=== PATIENT | female | born 1970 | race Caucasian/White ===

== ENCOUNTER 2022-08-26 06:35 | Observation (INO) ==
--- NOTE | 2022-08-23 11:00 | Anesthesiology Consultation ---
Date of Service August 23, 2022 Assessment & Plan (1) Encounter for pre-operative examination: COVID screening: Per assessment on 08/23: No known COVID-19 positive contacts or current COVID-19 related symptoms. Travel screen negative. At surgeon discretion if preop Covid testing being done. Chart Review Chart Review: Acceptable Risk for Surgery and Patient NOT seen in Pre Admission Testing History Surgery Operation Date: 08/26/22 09:25 Proposed Procedures p Robotic Laparoscopic Assisted Partial Nephrectomy, Possible Hand Assist Radical Nephrectomy - - Mike Loera, Height/Weight Height: 5 ft 5 in Weight: 102.058 kg Allergies Allergy/AdvReac Type Severity Reaction Status Date / Time No Known Allergies Allergy Verified 08/23/22 09:32 Medications Home Medications Medication Instructions Recorded Confirmed Last Taken olmesartan 20 1 tab PO QAM 08/23/22 08/23/22 Unknown mg-hydrochlorothiazide 12.5 mg tablet omega 1-deu-ctz-fish oil 1,000 mg 1 cap PO DAILY 08/23/22 08/23/22 Unknown (120 mg-180 mg) capsule (Fish Oil) Past Medical History Medical History Diverticular disease Hyperlipidemia Per records, pt unaware Hypertension Renal mass Past Family History Family History Father Diabetes Brother Diabetes Other Family history of [place] (myocardial infarction) Past Surgical History Surgical History History of colonoscopy History of dilatation and curettage History of partial hysterectomy History of tonsillectomy History of tooth extraction Social History Smoking Status: Never smoker Do You Dip or Chew Tobacco: No Hx Alcohol Use: No Hx Substance Use: No substance use type: does not use Lab Results Anesthesia Preop Results Results Anesthesia Widget: WBC 8.40 K/ul (4.8-10.8) 08/13/22 Hgb 14.0 g/dl (12.0-16.0) 08/13/22 Hct 40.9 % (34.1-44.9) 08/13/22 Plt 294 K/uL (130-400) 08/13/22 Na 140 mmol/L (136-145) 08/13/22 K 3.4 mmol/L (3.5-5.1) L 08/13/22 Cl 104 mmol/L (98-107) 08/13/22 CO2 26 mmol/L (21-32) 08/13/22 BUN 18 mg/dl (6-23) 08/13/22 Creat 0.90 mg/dl (0.6-1.2) 08/13/22 Glucose Level 90 mg/dl (70-99(Fasting)) 08/13/22 Testing Electrocardiogram Date: 08/13/22 Sinus rhythm with occasional PVCs at 75 bpm. Nonspecific T wave abnormality. Other Testing Chest CT (08/18/22) There is no evidence of intrathoracic metastatic disease. There are least 3 pulmonary nodules which measure up to 5 mm. These are pathologic indeterminant and attention at follow-up is recommended. There is no airspace consolidation or pleural effusion. A complex right upper pole renal lesion is partially visualized. The liver is enlarged and steatotic.
[~2022-08-26 06:35] MED LIST: LR 15ML/HR IV SCH; ceFAZolin 2000MG 2,000 MG/15 ML SYR IV SCH
[2022-08-26] MEDS ORDERED: MIDAZOLAM HCL 1 MG/ML 2ML VIAL ONE (06:49)
[2022-08-26] MEDS ORDERED: fentaNYL citrate 100 MCG/2 ML VIAL ONE (06:49)
[2022-08-26] MEDS ORDERED: DEXAMETHASONE SOD INJ 4 MG/ML VIAL ONE (06:49)
[2022-08-26] MEDS ORDERED: ROCURONIUM BROMIDE 10 MG/ML 5 ML VIAL IV ONE ×3 (06:49→10:10)
[2022-08-26] MEDS ORDERED: ONDANSETRON INJ 2 MG/ML 2 ML VIAL ONE (06:49)
[2022-08-26] MEDS ORDERED: LIDOCAINE 2% MPF LOCAL 5 ML VIAL INFIL ONE (06:49)
[2022-08-26] MEDS ORDERED: PROPOFOL IV EMULSION 10 MG/ML 20 ML VIAL IV ONE (06:49)
--- NOTE | 2022-08-26 07:00 | History & Physical Bridge Note ---
Date of Service August 26, 2022 History & Physical Bridge Note I have examined the patient, reviewed the History & Physical and in the interval since the performance of the History & Physical I have noted the following changes of clinical significance: no changes noted
[2022-08-26] MEDS ORDERED: ATROPINE SULFATE 0.1 MG/ML 10ML SYR IV PRN (07:11)
[2022-08-26] MEDS ORDERED: HYDROmorphone INJ 2 MG/ML SYR/VIAL IV PRN (07:11)
[2022-08-26] MEDS ORDERED: ONDANSETRON INJ 2 MG/ML 2 ML VIAL IV PRN ×2 (07:11→11:34)
[2022-08-26] MEDS ORDERED: ePHEDrine sulfate 50 MG/ML AMP IV PRN (07:11)
[2022-08-26] MEDS ORDERED: BUPIVACAINE 0.5 % 5 MG/1 ML MPF 30ML VIAL ONE (07:32)
[2022-08-26] MEDS ORDERED: KETAMINE 50 MG/5 ML SYRINGE ONE (08:19)
[2022-08-26] MEDS ORDERED: HYDROmorphone INJ 2 MG/ML SYR/VIAL ONE (08:47)
[2022-08-26] MEDS ORDERED: PHENYLEPHRINE 100MCG/ML 5ML SYR ONE (08:49)
[2022-08-26] MEDS ORDERED: TISSEEL FIBRIN SEALANT 10ML TOP ONE (09:02)
[2022-08-26] MEDS ORDERED: SURGICEL ABSORB HEMOSTAT 2IN X 14IN TOP ONE (09:02)
[2022-08-26] MEDS ORDERED: FLOSEAL HEMOSTATIC MATRIX 10ML TOP ONE (09:02)
[2022-08-26] MEDS ORDERED: ePHEDrine sulfate 50 MG/ML SYR ONE (09:08)
[2022-08-26] MEDS ORDERED: SUGAMMADEX SODIUM 200 MG/2 ML VIAL IV ONE (10:13)
--- NOTE | 2022-08-26 10:33 | Operative Report ---
[facility] Post Operative Report Pre & Post Diagnosis Operation Date: 08/26/22 08:30 Pre-Op Diagnosis: Right Renal Mass Post-Op Diagnosis: Right Renal Mass I identified the patient and participated in the time-out.: Yes Procedure Operation Date: 08/26/22 08:30 Actual Procedures p Robotic Assisted Laparoscopic Right Radical Nephrectomy with extensive lysis of adhesions (Right) - Mike Loera DO Surgeon Mike Loera, II, DO Supervisor Plastic Sheets CATHY Avina Estimated Blood Loss 75 Findings Consistent with Post-Op Diagnosis Large perihilar tumor of the posterior upper pole with close proximity to the hilar vessels and appearance of possible invasion of the hilum on intraoperative ultrasound. Extensive adhesions of the right lateral abdominal wall with the appendix attached to the lateral wall. Mass appeared to have vessels coming off of the surrounding perinephric fat as well as attachments to the liver. No signs of invasion into the liver. The right adrenal gland was found to be severely adhered to the tissue surrounding the mass. Due to these attachments the adrenal gland did appear to be involved in the resection and appeared to be removed with the radical specimen Specimens Right radical nephrectomy Drains 18 Fr Bryan Anesthesia Type General Complications none Disposition Disposition: Recovery Room Indications Patient with right renal mass suspicious for malignancy. Imaging concerning for mass involving the hilum with close proximity to the main renal vessels. Risks and benefits discussed at length. Description of Procedure The patient was brought to the operative suite and placed under general endotracheal intubation anesthesia in the supine position. The patient was transferred to lateral position with the right flank exposed. The patient was placed into a flex'ed position and then placed into mild reverse Trendelenberg. At this point, the patient prepped and draped in the usual sterile fashion and a timeout was completed. Preoperative weight based antibiotics had been given. IDALIA's and SCD's were placed on the patient's lower extremities. A catheter was placed by nursing using sterile technique. With the time out completed the patient was flexed and the skin was marked. The robotic port site was anesthetized. A small incision was made into the skin and subcutaneous tissues. A Varess needle was selected and placed. The needle was easily moved and it was irrigated and aspirated without any issues or concerns for placement. Insufflation commenced. The 8mm robotic port was placed. The abdominal cavity was further insufflated. The laparoscopic camera was placed and the abdominal cavity inspected. No concerning features were noted. At this point, the skin was marked for port placement and 8mm working ports were placed. The skin was anesthetized down to fascia and an approx 1cm incision was made to place the 2 x 8mm ports. A 12 mm assistant shift supervisor port and a 12 mm robotic port were also placed in similar fashion under direct visualization. The robot was positioned and docked. The camera was placed and all trocars were positioned under direct visualization. Francy Gerardo was integral in port placement, camera utilization, and docking procedure. She also assisted during the extensive lysis of adhesions. She remained in sterile attire and then proceeded to assist the remainder of the case. The colon was mobilized medially to expose the retroperitoneum and the area assessed. Adhesions were freed to allow mobilization. A significant amount of further adhesions were noted from the colon and were freed. The appendix was found to have adhesions to the lateral wall and had to be bluntly and carefully dissected away in order to access the lateral gutter. These adhesions were dissected with blunt technique. Cautery was used to assist dissection and control bleeding. The retroperitoneal fat was assessed. Greater than 20 minutes dedicated to lysis of adhesions. Starting distally the retroperitoneum was dissected and care was taken to dissect down near the IVC. The gonadal vein and ureter were identified. This was then followed superiorly. Dissection stayed toward the midline along the IVC and the ureter and gonadal vein were followed up towards the renal hilum. The dissection was followed to the renal pelvis. The Renal Vein was identified and exposed. Dissection was taken further superior. The Renal Artery and Vein were then cleaned and exposed. The mass was visible along the posterior portion of the hilum and involving a majority of the upper pole. The mass also had multiple attachments to tissues superior including the retroperitoneal fat and the liver. The mass also grossly appeared to involve the hilum and was in close proximity to the main renal vessels. The renal artery appeared to have 3 distinct branches with the superior most going to the mass. The ultrasound probe was placed and the mass further examined. Hilar position and location of the vessels were found to be concerning. Mass did not appear to be resectable without possible involvement of the surrounding tissues. The renal vessels were further cleaned and the stapling device with the robot port was placed. The renal artery branches were then stapled using the vascular load for the robotic stapler. The same was completed for the vein. This was then inspected. No bleeding or other issues. With the vessels stapled and ligated, the posterior and lateral edges were dissected. The superior portion was then dissected with care to avoid disrupting the mass. The liver had significant attachments. A few vessels were noted in the retroperitoneal fat as well as coming off of the area near the liver. These were going towards the mass. Clips were utilized for the larger vessels. Cautery was used to ligate the vessels as well. Dissection was carefully taken around. Throughout the process care was taken to monitor the mass. Along the more medial edge the adrenal gland was appreciated. An attempt was made to dissect the tissue free however the area was significantly adhered and was in close proximity to the edge of the mass. Due to this dissection was taken around and a portion of the adrenal gland appeared to be adhered to the area. This was dissected through. No considerable or major areas of bleeding were noted. The entire superior edge was eventually freed and no major areas or bleeding was noted. At this point the stapling device with the robot was once again utilized to lig ate and cut the ureter and the inferior perinephric fat and tissue. The kidney was then completely freed and was displaced down into the pelvis. The entire dissection space was inspected one final time. No bleeding or injuries or areas of concern were noted. No tumor or other concerning features were noted. At this point, the robot was undocked and moved away from the patient. The port sites were all assessed laparoscopically. The superior 12 mm port site was closed with a 2-0 Vicryl suture. The other ports were assessed and no issues observed. The inferior robotic port was opened further exposing fascia. And incision was extended in order to allow removal of the kidney. With the fascia exposed this was further opened and dissected. The kidney was identified and was grasped and removed. A PDS suture was used to close fascia. The skin at each site was closed with a stapling device. The area was then cleaned and bandages were placed. The patient was moved back into the supine position The patient was cleaned, aroused from anesthesia, and transferred to the pacu in stable condition having tolerated the procedure well with no complications. I was present and participated in all aspects of the procedure. CATHY Avina was critical in the portions as mentioned above. I attest to the content of the Intraoperative Record and any orders documented therein. Any exceptions are noted below.
[2022-08-26] MEDS: fentaNYL citrate 100 MCG/2 ML VIAL IV PRN ×2 (10:52→10:58)
--- NOTE | 2022-08-26 11:08 | Anesthesiology Progress Note ---
Date of Service August 26, 2022 Anesthesia Post Procedure Vital Signs Vital Signs: Temp Pulse Resp BP Pulse Ox O2 Del Method O2 Flow Rate 08/26/22 11:05 62 14 120/67 100 Oxymask 6 08/26/22 10:55 70 17 120/67 100 Oxymask 6 08/26/22 10:45 78 13 117/68 100 Oxymask 6 08/26/22 10:38 36.1 C L 83 12 116/72 100 Oxymask 6 08/26/22 07:23 37.2 C 90 18 133/95 97 Room Air Pain Intensity Abdomen: Pain Intensity: 4 Transfer of Care Handoff Completed per policy Notes Mental Status: alert / awake / arousable and participated in evaluation Patient Amnestic to Procedure: Yes Nausea / Vomiting: adequately controlled Pain: adequately controlled Airway Patency, RR, SpO2: stable & adequate BP & HR: stable & adequate Hydration State: stable & adequate Anesthetic Complications: no major complications apparent and Pt Satisfied with anesthetic care
[2022-08-26 11:19] LABS: Basophils # (auto) 0.08 K/uL (0-0.2); Basophils % (auto) 0.4 %; Eosinophils # (auto) 0.06 K/uL (0-0.50); Eosinophils % (auto) 0.3 %; Hematocrit (blood only) 38.7 % (34.1-44.9); Immature Granulocytes # (auto) 0.12 K/uL (0.00-0.02); Immature Granulocytes % (auto) 0.6 %; Lymphocytes # (auto) 1.93 K/uL (1.2-3.4); Lymphocytes % (auto) 9.9 %; Mean Corpuscular Hemoglobin 29.7 pg (25.0-34.0); Mean Corpuscular Hgb Conc 33.6 g/dL (32.0-36.0); Mean Corpuscular Volume 88.6 fL (80.0-100.0); Mean Platelet Volume 10.7 fL (9.4-12.3); Monocytes # (auto) 1.01 K/uL (0.24-0.82); Monocytes % (auto) 5.2 %; Neutrophils # (auto) 16.35 K/uL (1.4-6.5); Neutrophils % (auto) 83.6 %; Platelet Count 309 K/uL (130-400); RDW Coefficient of Variation 13.2 % (11.5-14.5); Red Blood Count 4.37 M/uL (3.93-5.22); White Blood Count 19.55 K/ul (4.8-10.8)
[2022-08-26] MEDS ORDERED: oxyCODONE HCL IR 5 MG TAB (IMMEDIATE RELEASE) PO PRN ×2 (11:34)
[2022-08-26] MEDS ORDERED: MoRPHine SULFATE 4 MG/ML 1 ML CARP\\VIAL IV PRN (11:34)
[2022-08-26] MEDS ORDERED: MoRPHine SULFATE 2 MG/ML CARP IV PRN (11:34)
[2022-08-26 11:51] LABS: BUN Creatinine Ratio 11.5 (10-20); Creatinine Clr Calc Pharmacy 57.6 ml/min; Est GFR (African American) 53.7 ml/min; Est GFR (Non-African American) 46.4 ml/min; Potassium 3.6 mmol/L (3.5-5.1)
[2022-08-26] MEDS: LACTATED RINGER'S 1,000 ML IV SCH ×2 (12:04→21:53)
[2022-08-26] MEDS: ACETAMINOPHEN 325 MG TAB PO PRN ×2 (12:35→21:52)
[2022-08-26] MEDS: ceFAZolin 2000MG 2,000 MG/15 ML SYR IV SCH (16:18)
[2022-08-26] MEDS: DOCUSATE SODIUM 100 MG CAP PO SCH (20:12)
[2022-08-27] MEDS: ceFAZolin 2000MG 2,000 MG/15 ML SYR IV SCH (00:15)
[2022-08-27] MEDS: LACTATED RINGER'S 1,000 ML IV SCH (07:48)
[2022-08-27] MEDS: DOCUSATE SODIUM 100 MG CAP PO SCH (07:52)
[2022-08-27] MEDS ORDERED: HEPARIN SOD 5,000 UNIT/0.5 ML VIAL SQ SCH (09:00)
[2022-08-27] MEDS ORDERED: OLMESARTAN MEDOXOMIL 20 MG TAB PO SCH (09:00)
[2022-08-27] MEDS ORDERED: hydroCHLOROthiazide 25 MG TAB PO SCH ×2 (09:00)
[2022-08-27 09:29] LABS: Basophils # (auto) 0.03 K/uL (0-0.2); Basophils % (auto) 0.2 %; Eosinophils # (auto) 0.02 K/uL (0-0.50); Eosinophils % (auto) 0.1 %; Hematocrit (blood only) 39.6 % (34.1-44.9); Hemoglobin 13.8 g/dl (12.0-16.0); Immature Granulocytes # (auto) 0.05 K/uL (0.00-0.02); Immature Granulocytes % (auto) 0.3 %; Lymphocytes # (auto) 2.04 K/uL (1.2-3.4); Mean Corpuscular Hemoglobin 29.4 pg (25.0-34.0); Mean Corpuscular Hgb Conc 34.8 g/dL (32.0-36.0); Mean Corpuscular Volume 84.4 fL (80.0-100.0); Mean Platelet Volume 11.8 fL (9.4-12.3); Monocytes # (auto) 1.36 K/uL (0.24-0.82); Monocytes % (auto) 8.6 %; Neutrophils # (auto) 12.25 K/uL (1.4-6.5); Neutrophils % (auto) 77.8 %; Platelet Count 294 K/uL (130-400); RDW Coefficient of Variation 13.2 % (11.5-14.5); RDW Standard Deviation 40.5 fL (36.4-46.3); Red Blood Count 4.69 M/uL (3.93-5.22); White Blood Count 15.75 K/ul (4.8-10.8)
[2022-08-27] MEDS: ACETAMINOPHEN 325 MG TAB PO PRN (09:49)
[2022-08-27 09:53] LABS: BUN Creatinine Ratio 11.5 (10-20); Calcium 8.8 mg/dl (8.5-10.1); Creatinine Clr Calc Pharmacy 57.6 ml/min; Est GFR (African American) 53.7 ml/min; Est GFR (Non-African American) 46.4 ml/min; Potassium 3.6 mmol/L (3.5-5.1)
--- NOTE | 2022-08-27 12:39 | Urology Progress Note ---
Date of Service August 27, 2022 Assessment & Plan (1) Renal mass: (2) Hyperlipidemia: (3) Hypertension: Plan POD 1 s/p RAL Radical Right Nephrectomy. 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 Patient is ambulating and has been since last evening. Had tolerated diet. Has been tolerating lunch. Patient had catheter removed this morning without major issue. No major problems or concerns. Does have some pain in the back and shoulders. Has been largely musculoskeletal. Also some issues with deep breaths though has been using incentive spirometry and has been doing very well. Is interested about going home. Labs are currently stable creatinine was 1.31 it was 1.31 directly postoperatively. Patient's hemoglobin has remained stable. Vitals are currently stable with good blood pressure and heart rate. No fevers or chills. Had reviewed postoperative care and management. Patient has eduardo with bandages over the wound. Can likely have bandages removed in the next 1 to 2 days and wash normally over top of the wounds themselves. Will be able to start showering later this evening and tomorrow. Okay to wash normally. No soaking or hot tubs. We will set up patient with discharge instructions as well as follow-up. We will likely plan to see back in the office in approximately 1 week to have staple removed in the office Admission and Anticipated Discharge Date Admission Date: August 26, 2022 Subjective Postop from urologic surgery. POD 1 s/p RAL Radical Right Nephrectomy. Suspicious Renal mass, probable Renal Cell Carcinoma. Patient has been tolerating well, but is having some pain and discomfort. Incisions have been mild sore. Having some abdominal distension/gas pains. Pain in back and shoulders. Not severe. Likely Musculoskeletal. Has tolerated catheter. Was removed this AM. No issues or problems with removal. Has not had severe pain or uncontrollable pain. Has been working on deep breathing and using Incentive Spirometry. Patient has been ambulating. Started last PM. Has not had bowel movement or major change. No new nausea or vomiting. Had tolerated anesthesia without major problems Tolerated liquid diet postoperatively. Advancing as tolerated. Review of Systems Review of Systems: All systems reviewed & are unremarkable except as noted in HPI & below Physical Exam Physical Exam: General: Alert in no acute distress. HEENT: Normocephalic Atraumatic. Inspection normal. Cranial Nerves 2-12 Grossly intact. Normal inspection of face. Normal inspection of neck. Psychologic: Normal affect. Respiratory: Nonlabored. No use of accessory muscles. No tachypnea or dyspnea. Cardiovascular: No tachycardia Skin: [place] and Dry. No rashes or visible lesions. Extremities/Lymphatics: No edema Abdomen: Appropriately tender. Mild distended. No rebound or guarding. Wound: Clean, dry, covered. Results & Data ([facility]) Vital Signs (Past 12 Hours) Vital Signs Temp Pulse Resp BP Pulse Ox O2 Del Method 08/27/22 07:13 37 C 75 16 129/76 92 Room Air PG Care Time/CCT Total # of Minutes Spent Total Time Spent with Patient: Total time spent is greater than 50% in coordination of care (as documented) at patient's floor/unit and/or counseling patient: Coding Level of Care Code 68136 Subseq Hosp Care Lvl 2 Diagnoses Renal mass N28.89 Hyperlipidemia E78.5 Hypertension I10
--- NOTE | 2022-08-27 12:47 | Discharge Summary ---
Date of Service August 27, 2022 Admission HPI Per Admitting Provider See H&P Admission Exam Per Admitting Provider See H&P Principal Diagnosis Right Renal Mass. Suspicious. Probable Renal Cell Carcinoma Discharge Exam General: Alert in no acute distress. HEENT: Normocephalic Atraumatic. Inspection normal. Cranial Nerves 2-12 Grossly intact. Normal inspection of face. Normal inspection of neck. Psychologic: Normal affect. Respiratory: Nonlabored. No use of accessory muscles. No tachypnea or dyspnea. Cardiovascular: No tachycardia Skin: [place] and Dry. No rashes or visible lesions. Extremities/Lymphatics: No edema Abdomen: Appropriately tender. Mild distended. No rebound or guarding. Wound: Clean, dry, covered. Discharge Data Allergies Allergy/AdvReac Type Severity Reaction Status Date / Time Iodinated Contrast Media Allergy Mild itching Verified 08/26/22 07:40 Procedures Performed Operation Date: 08/26/22 08:30 Actual Procedures p Robotic Assisted Laparoscopic Right Radical Nephrectomy(Right) - Mike Loera, DO Hospital Course (1) Renal mass: (2) Hyperlipidemia: (3) Hypertension: Plan POD 1 s/p RAL Radical Right Nephrectomy. 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 Patient is ambulating and has been since last evening. Had tolerated diet. Has been tolerating lunch. Patient had catheter removed this morning without major issue. No major problems or concerns. Does have some pain in the back and shoulders. Has been largely musculoskeletal. Also some issues with deep breaths though has been using incentive spirometry and has been doing very well. Is interested about going home. Labs are currently stable creatinine was 1.31 it was 1.31 directly postoperatively. Patient's hemoglobin has remained stable. Vitals are currently stable with good blood pressure and heart rate. No fevers or chills. Had reviewed postoperative care and management. Patient has eduardo with bandages over the wound. Can likely have bandages removed in the next 1 to 2 days and wash normally over top of the wounds themselves. Will be able to start showering later this evening and tomorrow. Okay to wash normally. No soaking or hot tubs. We will set up patient with discharge instructions as well as follow-up. We will likely plan to see back in the office in approximately 1 week to have staple removed in the office Total Time Total Time Spent Total Time Spent (In Minutes): 10 minutes Total Time Includes: Examination of the Patient, Discharge Planning, Medication Reconciliation and Communication With Other Providers Discharge Plan Discharge Items Patient Disposition: Home - Self-Care Reason For Visit: Renal Mass Discharge Diagnosis: Renal Mass Condition on Discharge: Good Activity: Per Instructions section Activity Comment: Increase activity slowly over time. Avoid heavy lifting greater than 50lb Lifting: No more than 25 pounds Bathing Comment: OK to shower. No tub baths or soaks. Sexual Activity: Wait until after follow-up appointment Exercise/Sports: Wait until after follow-up appointment Exercise Comment: Gradually increase as tolerated over the next few weeks. Avoid heavy lift Driving/Machine Use: Do not drive if taking prescription pain medication. Non-emergency contact: Surgeon and Urologist Call non-emergency contact if: you have any medication questions, your symptoms worsen, your pain is not controlled, your pain is worsening, your pain is unusual for you, your pain is concerning for you, you have a fever, your temperature is above 101.5, your wound has increased redness, your wound has increased drainage and your wound pain has increased Follow-up/Referrals: Mike Loera DO [Physician] - Brittney Javier MD [Primary Care Provider] - [facility],Nurse [FAKE FOR SCHEDULES] - Diet: Regular Diet Comment: Increase as tolerated. Recommend light/easy to digest foods. Hydrate Addtl Attending Provider Instructions: Please take all medications as prescribed and keep all follow-ups as scheduled. Please call our office at [phone] with any questions, concerns or need to reschedule appointments for any reason. We are happy to assist you. The urology office will contact you to schedule your follow-up visits. Recovering at home: We recommend having someone with you for the first few days after surgery to help care for you. It is okay to shower tomorrow. Please avoid swimming, bathing or using hot tub until incisions are well healed. Avoid driving until you are not requiring pain medication any further. Walk at least a few times a day. Increase your distance, as you feel able. Stairs in your home are okay. Please avoid strenuous or sexual activity until your follow-up. We recommend using stool softener (i.e. Colace) to prevent constipation and straining, especially the first two weeks post operatively. Call [facility] at [phone] if you experience: Chest pain or trouble breathing (call 911 or go to the hospital). Fever of 101F or higher Symptoms of infection at incision site, including redness or swelling, warmth, or bad-smelling drainage If you have catheter, and you notice: o Bloody urine or drainage that is dark red or has large clots (Please remember a small amount of blood is normal) o No drainage from the catheter for more than 6 hours o The catheter comes out of your bladder Pain that is not controlled with medicines Pending Studies at Discharge: Yes (pathology) Stand-Alone Forms: [facility] [employer] Smoking Cessation Medications and DC Order Prescriptions: New docusate sodium 100 mg capsule 100 mg PO BID Qty: 30 3RF oxycodone 5 mg tablet 5 mg PO Q6H PRN (Reason: pain) Qty: 14 0RF Continued olmesartan-hydrochlorothiazide 20-12.5 mg Tablet 1 tab PO QAM omega 6-orf-rmw-fish oil [Fish Oil] 1,000 mg (120 mg-180 mg) Capsule 1 cap PO DAILY Discharge Orders: Discharge Order (Routine); Ordered 08/27/22 Ordered By: Mike Loera Admission Data Admit Date/Time: 08/26/22 10:45 Attending Provider: Mike Loera Admit Provider: Mike Loera Primary Care Provider: Brittney Javier Coding Level of Care Code D/C DAY MANAGEMENT <30 MINS Diagnoses Renal mass N28.89 Hyperlipidemia E78.5 Hypertension I10
== END 2022-08-27 13:30 | disposition home or self-care (01) ==
LOC: ASU 06:35 → 3E 10:45 → INTOOBSV 10:45
DX: Z79.899 Other long term (current) drug therapy; C64.1 Malignant neoplasm of right kidney, except renal pelvis